=== PATIENT | male | born 1960 | race Caucasian/White ===

== ENCOUNTER 2022-05-01 12:12 | Inpatient (IN) | payer BC, OTHER ==
[~2022-05-01 12:12] MED LIST: Iopamidol-370 76% 500 ML 1 ML ONE
[2022-05-01] MEDS ORDERED: Acetaminophen 325 MG TAB ONE (12:41)
[2022-05-01 12:54] LABS: Hemoglobin 14.4 g/dL (14.0-18.0); Mean Corpuscular HGB CONC 32.3 g/dL (32.0-36.0); Mean Corpuscular Hemoglobin 32.9 pg (27.0-31.0); Mean Platelet Volume 6.1 fL (7.4-10.4); Platelet Count 551 thou/uL (130-400); RBC Distribution Width 11.6 % (11.5-14.5); Red Blood Cell (RBC) Count 4.38 mill/uL (4.70-6.10); White Blood Cell (WBC) Count 21.5 thou/uL (4.8-10.8)
[2022-05-01 13:14] LABS: Bilirubin Negative (Negative); Blood, Urine Negative (Negative); Clarity Clear (Clear); Glucose, Urine (Dipstick) Normal (Negative); Ketone, Urine Negative (Negative); Leukocyte Negative Leu/uL (Negative); Nitrite Negative (Negative); Protein, Urine (Dipstick) 20 mg/dL (Neg-Trace); pH, Urine 5.5 (5.0-9.0)
[2022-05-01 13:16] LABS: ALT (SGPT) 59 U/L (8-55); AST (SGOT) 24 U/L (5-34); Albumin 3.3 g/dL (3.4-4.8); Alkaline Phosphatase 149 U/L (40-110); Anion Gap 14 mmol/L (10-20); BUN (Urea Nitrogen) 13 mg/dL (8.4-25.7); Bilirubin, Total 1.2 mg/dL (0.2-1.2); Calc. Creatinine Clearance 0 mL/min (70-130); Calcium 10.1 mg/dL (7.8-10.44); Carbon Dioxide 22 mmol/L (23-31); Chloride 99 mmol/L (98-107); Globulin 4.3 g/dL (2.4-3.5); Glucose 113 mg/dL (80-115); Potassium 4.4 mmol/L (3.5-5.1); Protein, Total 7.6 g/dL (5.8-8.1); Sodium 131 mmol/L (136-145)
[2022-05-01 13:38] LABS: Band 11 % (5-11); Lymphocytes 6 % (21-51); MDiff Complete? YES; Macrocytosis SLIGHT = 6-15 cells (100X) (0-5/hpf); Monocytes 4 % (0-10); Neutrophil 78 % (42-75); Platelet Morphology Comment Appears Increased
[2022-05-01] MEDS ORDERED: Levofloxacin 500 mg/D5W 100 ml Premix Bag ONE (13:55)
[2022-05-01] MEDS ORDERED: Vancomycin 1 GM/200 ML BAG ONE (13:56)
[2022-05-01] MEDS ORDERED: Lidocaine 1% w/Epinephrine 1:100K 20 ML VIAL ONE (14:45)
[2022-05-01] MEDS ORDERED: Ondansetron ODT 4 MG TAB PO PRN (16:09)
[2022-05-01] MEDS ORDERED: Ondansetron PF 4 MG/2 ML Vial IVP PRN (16:10)
[2022-05-01 16:50] LABS: BF Color Gray; Body Fluid Source Pleural Fluid; Clarity Cloudy/Turbid (Clear); Tube # EDTA
[2022-05-01] MEDS: Acetaminophen 325 MG TAB PO PRN ×2 (18:38→21:57)
[2022-05-01] MEDS ORDERED: Meropenem 1 GM in Sodium Chloride 0.9% 100 ML IVPB SCH ×2 (18:45→22:00)
[2022-05-01] MEDS ORDERED: Cefepime 2 GM in Sodium Chloride 0.9% 100 ML IVPB SCH (21:00)
[2022-05-02] MEDS: Vancomycin 1.5 GRAM/300 ML BAG 1.5 GM in Premix Bag 1 BAG IVPB SCH ×2 (02:02→19:24)
[2022-05-02] MEDS: Meropenem 1 GM in Sodium Chloride 0.9% 100 ML IVPB SCH ×2 (05:30→19:30)
[2022-05-02 06:33] LABS: Band 9 % (5-11); Hemoglobin 12.5 g/dL (14.0-18.0); Hypochromia SLIGHT = 6-15 cells (100X) (0-5/hpf); Lymphocytes 10 % (21-51); MDiff Complete? YES; Mean Corpuscular HGB CONC 33.4 g/dL (32.0-36.0); Mean Corpuscular Hemoglobin 32.1 pg (27.0-31.0); Mean Corpuscular Volume 96.1 fL (78.0-98.0); Mean Platelet Volume 5.9 fL (7.4-10.4); Monocytes 9 % (0-10); Neutrophil 72 % (42-75); Platelet Count 548 thou/uL (130-400); Platelet Morphology Comment Appears Increased; RBC Distribution Width 11.6 % (11.5-14.5); Red Blood Cell (RBC) Count 3.89 mill/uL (4.70-6.10); White Blood Cell (WBC) Count 19.2 thou/uL (4.8-10.8)
[2022-05-02 06:38] LABS: Anion Gap 12 mmol/L (10-20); BUN (Urea Nitrogen) 12 mg/dL (8.4-25.7); Calc. Creatinine Clearance 145 mL/min (70-130); Calcium 9.5 mg/dL (7.8-10.44); Carbon Dioxide 22 mmol/L (23-31); Chloride 103 mmol/L (98-107); Glucose 123 mg/dL (80-115); Potassium 4.3 mmol/L (3.5-5.1); Sodium 133 mmol/L (136-145)
[2022-05-02] MEDS: Enoxaparin Sodium 40 MG/0.4 ML SYRINGE SC SCH (08:35)
[2022-05-02] MEDS: Thyroid 60 MG TAB PO SCH (08:39)
[2022-05-02] MEDS ORDERED: Losartan 25 MG TAB PO SCH (09:00)
[2022-05-02] MEDS ORDERED: Non-Formulary Item 1 EACH (Olmesartan Medoxomil [Benicar] 40 MG Tab) PO SCH (09:00)
[2022-05-02] MEDS ORDERED: Non-Formulary Item 1 EACH (Omeprazole [Omeprazole] 40 MG Capsule.Dr) PO SCH (09:00)
[2022-05-02] MEDS ORDERED: fentaNYL Citrate/PF 100 MCG/2 ML SYRINGE ONE ×2 (11:24→15:22)
[2022-05-02] MEDS ORDERED: Succinylcholine 200 MG/10 ml SYRINGE FS ONE (12:12)
[2022-05-02] MEDS ORDERED: Lidocaine 1% PF 5 ML VIAL ONE (12:12)
[2022-05-02] MEDS ORDERED: PROPOFOL 200 MG/20 ML VIAL ONE (12:12)
[2022-05-02] MEDS ORDERED: Rocuronium Bromide 10 MG/ML (10ML VIAL) ONE (12:12)
[2022-05-02] MEDS ORDERED: Glycopyrrolate 0.2 MG/ML 5 ML SYRINGE ONE (12:12)
[2022-05-02] MEDS ORDERED: Dexamethasone 20 MG/5 ML VIAL ONE (12:12)
[2022-05-02 15:33] LABS: Reference Lab Name LABCORP
[2022-05-02 15:34] LABS: Ref Lab Test Ordered ADA PL FLUID
[2022-05-02] MEDS ORDERED: Ondansetron PF 4 MG/2 ML Vial IVP PRN ×2 (15:50→16:02)
[2022-05-02] MEDS ORDERED: Promethazine HCl 6.25 MG in Sodium Chloride 0.9% 50 ML IVPB PRN (15:50)
[2022-05-02] MEDS ORDERED: Promethazine HCl 25 MG/ML VIAL IM PRN (16:02)
[2022-05-02] MEDS ORDERED: Naloxone HCl 0.4 mg/ml Vial IV PRN (16:02)
[2022-05-02] MEDS ORDERED: diphenhydrAMINE 50 MG/ML VIAL IM PRN (16:02)
[2022-05-02] MEDS ORDERED: diphenhydrAMINE 25 MG CAP PO PRN (16:02)
[2022-05-02] MEDS ORDERED: fentaNYL Citrate/PF 2,000 MCG in Sodium Chloride 0.9% 60 ML IV PRN (16:02)
[2022-05-02] MEDS ORDERED: diphenhydrAMINE 50 MG/ML VIAL IVP PRN (16:02)
[2022-05-02] MEDS ORDERED: PCA Communication Order-Pharmacy FS SCH (16:15)
[2022-05-02] MEDS: Lactated Ringer's 1,000 ML IV SCH (19:24)
[2022-05-02] MEDS: Ketorolac Tromethamine 30 MG/ML VIAL IVP SCH (21:31)
[2022-05-03] MEDS: Ketorolac Tromethamine 30 MG/ML VIAL IVP SCH ×4 (00:14→17:05)
[2022-05-03] MEDS: Lactated Ringer's 1,000 ML IV SCH (00:15)
[2022-05-03 03:23] LABS: #Lymphocytes 1.2 thou/uL (1.20-3.40); #Monocytes 0.8 thou/uL (0.11-0.59); #Neutrophils 17.3 thou/uL (1.40-6.50); %Basophils 0.1 % (0.0-1.0); %Monocytes 3.9 % (0.0-10.0); %Neutrophils 89.9 % (42.0-75.0); Hemoglobin 12.2 g/dL (14.0-18.0); Mean Corpuscular HGB CONC 32.8 g/dL (32.0-36.0); Mean Corpuscular Hemoglobin 31.7 pg (27.0-31.0); Mean Corpuscular Volume 96.6 fL (78.0-98.0); Mean Platelet Volume 5.8 fL (7.4-10.4); Platelet Count 609 thou/uL (130-400); RBC Distribution Width 11.5 % (11.5-14.5); Red Blood Cell (RBC) Count 3.86 mill/uL (4.70-6.10); White Blood Cell (WBC) Count 19.3 thou/uL (4.8-10.8)
[2022-05-03 03:37] LABS: Anion Gap 14 mmol/L (10-20); BUN (Urea Nitrogen) 19 mg/dL (8.4-25.7); Calc. Creatinine Clearance 127 mL/min (70-130); Calcium 9.5 mg/dL (7.8-10.44); Carbon Dioxide 23 mmol/L (23-31); Chloride 102 mmol/L (98-107); Glucose 145 mg/dL (80-115); Potassium 4.6 mmol/L (3.5-5.1); Sodium 134 mmol/L (136-145)
[2022-05-03] MEDS: Meropenem 1 GM in Sodium Chloride 0.9% 100 ML IVPB SCH ×3 (04:07→22:14)
[2022-05-03] MEDS: Vancomycin 1.5 GRAM/300 ML BAG 1.5 GM in Premix Bag 1 BAG IVPB SCH ×2 (06:08→19:38)
[2022-05-03 06:19] LABS: Vancomycin, Trough 10.7 ug/mL
[2022-05-03] MEDS: Polyethylene Glycol 3350 17 GM Packet PO SCH (07:53)
[2022-05-03] MEDS: Enoxaparin Sodium 40 MG/0.4 ML SYRINGE SC SCH ×2 (07:53→21:52)
[2022-05-03] MEDS ORDERED: Bisacodyl 5 MG TAB PO PRN (07:54)
[2022-05-03] MEDS: Thyroid 60 MG TAB PO SCH (09:19)
[2022-05-03] MEDS: Losartan 25 MG TAB PO SCH (09:20)
[2022-05-04] MEDS: Ketorolac Tromethamine 30 MG/ML VIAL IVP SCH ×4 (00:01→17:59)
[2022-05-04] MEDS: Zolpidem Tartrate 5 MG TAB PO PRN ×2 (00:03→22:10)
[2022-05-04] MEDS: Lactated Ringer's 1,000 ML IV SCH (02:17)
[2022-05-04] MEDS: Meropenem 1 GM in Sodium Chloride 0.9% 100 ML IVPB SCH ×3 (04:54→20:19)
[2022-05-04 05:52] LABS: #Eosinphils 0.1 thou/uL (0.0-0.7); #Lymphocytes 1.8 thou/uL (1.20-3.40); #Monocytes 1.1 thou/uL (0.11-0.59); #Neutrophils 10.8 thou/uL (1.40-6.50); %Basophils 0.2 % (0.0-1.0); %Eosinophils 0.4 % (0.0-10.0); %Lymphocytes 13.1 % (21.0-51.0); %Neutrophils 78.4 % (42.0-75.0); Hemoglobin 12.9 g/dL (14.0-18.0); Mean Corpuscular HGB CONC 33.3 g/dL (32.0-36.0); Mean Corpuscular Hemoglobin 31.9 pg (27.0-31.0); Mean Corpuscular Volume 95.7 fL (78.0-98.0); Mean Platelet Volume 5.7 fL (7.4-10.4); Platelet Count 655 thou/uL (130-400); RBC Distribution Width 11.5 % (11.5-14.5); Red Blood Cell (RBC) Count 4.04 mill/uL (4.70-6.10); White Blood Cell (WBC) Count 13.8 thou/uL (4.8-10.8)
[2022-05-04 06:16] LABS: Anion Gap 12 mmol/L (10-20); BUN (Urea Nitrogen) 23 mg/dL (8.4-25.7); Calc. Creatinine Clearance 136 mL/min (70-130); Calcium 9.7 mg/dL (7.8-10.44); Carbon Dioxide 24 mmol/L (23-31); Chloride 103 mmol/L (98-107); Glucose 111 mg/dL (80-115); Potassium 4.3 mmol/L (3.5-5.1); Sodium 135 mmol/L (136-145)
[2022-05-04] MEDS: Vancomycin 1.5 GRAM/300 ML BAG 1.5 GM in Premix Bag 1 BAG IVPB SCH ×2 (08:28→18:58)
[2022-05-04] MEDS: Losartan 25 MG TAB PO SCH (08:29)
[2022-05-04] MEDS: Polyethylene Glycol 3350 17 GM Packet PO SCH (08:29)
[2022-05-04] MEDS: Thyroid 60 MG TAB PO SCH (08:29)
[2022-05-04] MEDS ORDERED: HYDROcodone/Acetaminophen 5/325 mg Tablet PO PRN ×2 (12:46)
[2022-05-04] MEDS ORDERED: traMADol HCl 50 MG TAB PO PRN (12:47)
[2022-05-04] MEDS ORDERED: hydrALAZINE 20 MG/ML VIAL SLOW IVP PRN (16:03)
[2022-05-04] MEDS ORDERED: hydrALAZINE 25 MG TAB PO SCH (16:15)
[2022-05-04 16:49] LABS: Amphetamine Not Detected (NotDetected); Barbiturates Screen Not Detected (NotDetected); Benzodiazepine Screen Not Detected (NotDetected); Cocaine Metabolite Screen Not Detected (NotDetected); Methadone Not Detected (NotDetected); Methamphetamine Not Detected (NotDetected); Opiate Screen Not Detected (NotDetected); Oxycodone Screen Not Detected (NotDetected); Phencyclidine (PCP) Not Detected (NotDetected); THC/Cannabinoid Screen Not Detected (NotDetected); Tricyclic Screen Not Detected (NotDetected)
[2022-05-04 18:59] LABS: Vancomycin, Trough 15.8 ug/mL
[2022-05-04] MEDS: Enoxaparin Sodium 40 MG/0.4 ML SYRINGE SC SCH (20:22)
[2022-05-05] MEDS: Ketorolac Tromethamine 30 MG/ML VIAL IVP SCH ×4 (00:06→18:00)
[2022-05-05] MEDS ORDERED: Ziprasidone 20 MG VIAL IM SCH (03:00)
[2022-05-05] MEDS ORDERED: Sterile Water 10 ML VIAL FS PRN (03:00)
[2022-05-05 03:20] LABS: Bilirubin Negative (Negative); Blood, Urine Trace (Negative); Clarity Clear (Clear); Glucose, Urine (Dipstick) Normal (Negative); Ketone, Urine Negative (Negative); Leukocyte Negative Leu/uL (Negative); Nitrite Negative (Negative); Protein, Urine (Dipstick) Negative (Neg-Trace); Specific Gravity, Urine 1.019 (1.002-1.036); Squamous Epithelial None Seen HPF (0-3); WBC/HPF 0-3 HPF (0-3); pH, Urine 6.5 (5.0-9.0)
[2022-05-05 03:22] LABS: Bacteria/HPF Rare-Few HPF (None Seen)
[2022-05-05 03:23] LABS: Urine Culture Reflex No No
[2022-05-05 03:27] LABS: #Eosinphils 0.1 thou/uL (0.0-0.7); #Lymphocytes 1.4 thou/uL (1.20-3.40); #Monocytes 0.8 thou/uL (0.11-0.59); #Neutrophils 9.1 thou/uL (1.40-6.50); %Basophils 0.3 % (0.0-1.0); %Eosinophils 1.2 % (0.0-10.0); %Lymphocytes 12.2 % (21.0-51.0); %Monocytes 7.3 % (0.0-10.0); ALT (SGPT) 31 U/L (8-55); AST (SGOT) 27 U/L (5-34); Albumin 2.7 g/dL (3.4-4.8); Alkaline Phosphatase 100 U/L (40-110); Anion Gap 12 mmol/L (10-20); BUN (Urea Nitrogen) 21 mg/dL (8.4-25.7); Calc. Creatinine Clearance 134 mL/min (70-130); Calcium 9.4 mg/dL (7.8-10.44); Carbon Dioxide 24 mmol/L (23-31); Chloride 105 mmol/L (98-107); Globulin 3.5 g/dL (2.4-3.5); Glucose 104 mg/dL (80-115); Hemoglobin 12.1 g/dL (14.0-18.0); Magnesium 2.1 mg/dL (1.6-2.6); Mean Corpuscular HGB CONC 33.2 g/dL (32.0-36.0); Mean Corpuscular Hemoglobin 32.3 pg (27.0-31.0); Mean Corpuscular Volume 97.1 fL (78.0-98.0); Mean Platelet Volume 6.2 fL (7.4-10.4); Platelet Count 580 thou/uL (130-400); Potassium 4.3 mmol/L (3.5-5.1); Protein, Total 6.2 g/dL (5.8-8.1); RBC Distribution Width 11.6 % (11.5-14.5); Red Blood Cell (RBC) Count 3.75 mill/uL (4.70-6.10); Sodium 137 mmol/L (136-145); White Blood Cell (WBC) Count 11.5 thou/uL (4.8-10.8)
[2022-05-05] MEDS: Meropenem 1 GM in Sodium Chloride 0.9% 100 ML IVPB SCH ×3 (03:36→20:22)
[2022-05-05] MEDS: Vancomycin 1.5 GRAM/300 ML BAG 1.5 GM in Premix Bag 1 BAG IVPB SCH (06:34)
[2022-05-05] MEDS: Thyroid 60 MG TAB PO SCH (10:10)
[2022-05-05] MEDS: Polyethylene Glycol 3350 17 GM Packet PO SCH (10:11)
[2022-05-05] MEDS: Losartan 25 MG TAB PO SCH (10:11)
[2022-05-05] MEDS: Sodium Chloride 0.45% 1,000 ML IV SCH (12:18)
[2022-05-05] MEDS: Haloperidol Lactate 5 MG/ML VIAL IM SCH ×3 (12:26→20:22)
[2022-05-05] MEDS: Enoxaparin Sodium 40 MG/0.4 ML SYRINGE SC SCH (20:21)
[2022-05-06] MEDS: Ketorolac Tromethamine 30 MG/ML VIAL IVP SCH ×3 (00:16→11:35)
[2022-05-06] MEDS: Haloperidol Lactate 5 MG/ML VIAL IM SCH ×3 (00:17→08:39)
[2022-05-06] MEDS: traMADol HCl 50 MG TAB PO PRN ×3 (00:23→21:20)
[2022-05-06] MEDS: Meropenem 1 GM in Sodium Chloride 0.9% 100 ML IVPB SCH ×2 (04:13→11:55)
[2022-05-06] MEDS: Sodium Chloride 0.45% 1,000 ML IV SCH (05:24)
[2022-05-06 08:15] LABS: #Eosinphils 0.5 thou/uL (0.0-0.7); #Lymphocytes 1.5 thou/uL (1.20-3.40); #Monocytes 0.8 thou/uL (0.11-0.59); #Neutrophils 11.8 thou/uL (1.40-6.50); %Basophils 0.2 % (0.0-1.0); %Eosinophils 3.3 % (0.0-10.0); %Lymphocytes 10.4 % (21.0-51.0); %Monocytes 5.4 % (0.0-10.0); %Neutrophils 80.8 % (42.0-75.0); Hemoglobin 13.2 g/dL (14.0-18.0); Mean Corpuscular HGB CONC 31.2 g/dL (32.0-36.0); Mean Corpuscular Hemoglobin 32.4 pg (27.0-31.0); Mean Platelet Volume 6.1 fL (7.4-10.4); Platelet Count 475 thou/uL (130-400); RBC Distribution Width 11.7 % (11.5-14.5); Red Blood Cell (RBC) Count 4.08 mill/uL (4.70-6.10); White Blood Cell (WBC) Count 14.6 thou/uL (4.8-10.8)
[2022-05-06 08:18] LABS: Anion Gap 14 mmol/L (10-20); BUN (Urea Nitrogen) 19 mg/dL (8.4-25.7); Calc. Creatinine Clearance 155 mL/min (70-130); Carbon Dioxide 24 mmol/L (23-31); Chloride 108 mmol/L (98-107); Glucose 101 mg/dL (80-115); Potassium 4.9 mmol/L (3.5-5.1); Sodium 141 mmol/L (136-145)
[2022-05-06] MEDS: Thyroid 60 MG TAB PO SCH (08:36)
[2022-05-06] MEDS: Losartan 25 MG TAB PO SCH (08:37)
[2022-05-06 08:39] LABS: Free T4 (Free Thyroxine) 0.95 ng/dL (0.70-1.48); Thyroid Stimulating Hormone 0.7479 uIU/mL (0.35-4.94)
[2022-05-06] MEDS: Polyethylene Glycol 3350 17 GM Packet PO SCH (08:40)
[2022-05-06] MEDS ORDERED: Haloperidol Lactate 5 MG/ML VIAL IM PRN (12:42)
[2022-05-06] MEDS ORDERED: Sodium Chloride 0.45% 1,000 ML IV SCH (12:43)
[2022-05-06] MEDS: Enoxaparin Sodium 40 MG/0.4 ML SYRINGE SC SCH (21:13)
[2022-05-06] MEDS: Cefdinir 300 MG CAP PO SCH (21:14)
[2022-05-07] MEDS: Cefdinir 300 MG CAP PO SCH (08:37)
[2022-05-07] MEDS: Losartan 25 MG TAB PO SCH (08:37)
[2022-05-07] MEDS: Polyethylene Glycol 3350 17 GM Packet PO SCH (08:37)
[2022-05-07] MEDS: Thyroid 60 MG TAB PO SCH (08:38)
[2022-05-07] MEDS: metroNIDAZOLE 500 MG TAB PO SCH ×2 (08:38→16:22)
[2022-05-07] MEDS: traMADol HCl 50 MG TAB PO PRN (12:02)
[2022-05-07 12:13] VITALS: BP 145/95; TEMP 97.1
[2022-05-07 13:00] VITALS: BMI 28.3
== END 2022-05-07 17:00 | disposition home or self-care (01) | DRG 853 ==
LOC: ERS 12:12 → T4-B 14:59 → CCU 05-02 21:05 → SURG A 05-03 18:27
PROVIDERS: ADMIT Internal Medicine; ATTEND Internal Medicine
PROC: 0W993ZX Drainage of Right Pleural Cavity, Percutaneous Approach, Diagnostic (ICD-10-PCS; 2022-05-01)
PROC: 3E03329 Introduction of Other Anti-infective into Peripheral Vein, Percutaneous Approach (ICD-10-PCS; 2022-05-01)
PROC: 0BNK0ZZ Release Right Lung, Open Approach (ICD-10-PCS; principal; 2022-05-02)
PROC: 0W9900Z Drainage of Right Pleural Cavity with Drainage Device, Open Approach (ICD-10-PCS; 2022-05-02)
DX: A40.8 Other streptococcal sepsis (principal); J86.9 Pyothorax without fistula; J69.0 Pneumonitis due to inhalation of food and vomit; J96.90 Respiratory failure, unspecified, unspecified whether with hypoxia or hypercapnia; G93.41 Metabolic encephalopathy; F05 Delirium due to known physiological condition; J91.8 Pleural effusion in other conditions classified elsewhere; Z20.822 Contact with and (suspected) exposure to COVID-19; K21.9 Gastro-esophageal reflux disease without esophagitis; E03.9 Hypothyroidism, unspecified; Z96.641 Presence of right artificial hip joint; R13.10 Dysphagia, unspecified; I10 Essential (primary) hypertension; Z88.0 Allergy status to penicillin; Z79.899 Other long term (current) drug therapy; Z79.890 Hormone replacement therapy; Z83.3 Family history of diabetes mellitus; Z82.49 Family history of ischemic heart disease and other diseases of the circulatory system; Z53.32 Thoracoscopic surgical procedure converted to open procedure
CPT/HCPCS: 32554; 36415; 70450; 71045; 71260; 74177; 74230; 80048; 80053; 80202; 80306; 81001; 81003; 82140; 83605; 83615; 83735; 83880; 84145; 84157; 84439; 84443; 84484; 85025; 85060; 87040; 87070; 87076; 87077; 87081; 87086; 87149; 87186; 87205; 87430; 87804; 88112; 88305; 88312; 89051; 93005; 96361; 96365; 96367; C1776; J1100; J1630; J1650; J1885; J1956; J2185; J2704; J3010; J3370; J3486; J3490; J7120; Q9967; U0003; U0005

== ENCOUNTER 2022-05-21 12:32 | Outpatient (CLI) | payer OTHER | END 2022-05-21 12:33 | disposition home or self-care (01) | LOC: BICRAD 12:32 | PROVIDERS: ATTEND Thoracic Surgery (Cardiothoracic Vascular Surgery) | DX: J86.9 Pyothorax without fistula (principal); J98.11 Atelectasis | CPT/HCPCS: 71046 ==

== ENCOUNTER 2022-06-11 08:57 | Outpatient (CLI) | payer OTHER | END 2022-06-11 08:58 | disposition home or self-care (01) | LOC: LABBT 08:57 | PROVIDERS: ATTEND Family Medicine | DX: Z20.822 Contact with and (suspected) exposure to COVID-19 (principal) | CPT/HCPCS: 87811 ==

== ENCOUNTER 2022-06-12 08:41 | Outpatient (CLI) | payer OTHER | END 2022-06-12 08:42 | disposition home or self-care (01) | LOC: RAD 08:41 | PROVIDERS: ATTEND Internal Medicine | DX: J69.0 Pneumonitis due to inhalation of food and vomit (principal) | CPT/HCPCS: 74230 ==

== ENCOUNTER 2022-06-19 08:58 | Outpatient (CLI) | payer OTHER | END 2022-06-19 08:59 | disposition home or self-care (01) | LOC: RAD 08:58 | PROVIDERS: ATTEND Internal Medicine Critical Care Medicine | DX: R06.00 Dyspnea, unspecified (principal) | CPT/HCPCS: 71046 ==